=== PATIENT | female | born 1940 | race Caucasian/White ===

== ENCOUNTER → 2017-05-14 | Outpatient (CLI) | payer MEDICARE, OTHER ==
[~2017-05-14] MED LIST: ASPI325EC PO
[2017-05-14 16:05] LABS: Appearance, Urine Hazy (Clear); Bilirubin, Urine Neg (Neg); Blood, Urine 5+ (Neg); Color, Urine Yellow (P-Yellow); Glucose Qualitative, Urine Neg (Neg); Ketones, Urine Neg (Neg); Leukocyte Esterase, Urine 3+ (Neg); Nitrite, Urine Pos (Neg); Protein, Urine 2+ (Neg); Urobilinogen, Urine NORM (Normal)
[2017-05-14 16:29] LABS: Bacteria Mod /hpf; Squamous Epithelial Cells Few /hpf (Few); White Blood Cells, Urine TNTC /hpf (0-5)
== END ==
LOC: LAB 15:41 → LAB SHORT 15:41
PROVIDERS: Nurse Practitioner Family
DX: R31.0 Gross hematuria (principal); R30.0 Dysuria
CPT/HCPCS: 81001; 87077; 87086; 87186